=== PATIENT | male | born 1960 | race Caucasian/White ===

== ENCOUNTER 2020-10-16 14:45 | Emergency (ER) | payer OTHER ==
[2020-10-16] MEDS ORDERED: fentaNYL 100 MCG/2 ML SDV IVPUSH ONE ×2 (15:14→15:36)
[2020-10-16] MEDS ORDERED: Ondansetron 4 MG/2 ML SDV IVPUSH ONE (15:14)
--- NOTE | 2020-10-16 15:20 | EDM.PDOC ---
ED HPI GENERAL MEDICAL PROBLEM - General Chief Complaint: Abdominal Pain Stated Complaint: ABD PAIN Time Seen by Provider: 10/16/20 15:13 Source of Information: Reports: Patient, Family, RN Notes Reviewed History Limitations: Reports: No Limitations - History of Present Illness INITIAL COMMENTS - FREE TEXT/NARRATIVE: 60-year-old gentleman presents emergency department with a complaint of abdominal pain, he states the pain started yesterday and has progressively gotten worse he does have a history of some abdominal surgeries which include hernia and an appendicitis. He is not having fevers no shortness of breath no chest pain still passing gas Right Lower Abdominal Pain Score (Numeric/FACES): 10 - Related Data Allergies Allergy/AdvReac Type Severity Reaction Status Date / Time No Known Allergies Allergy Verified 10/16/20 15:14 Home Meds: Home Meds NK [No Known Home Meds] 10/16/20 [History] Past Medical History Gastrointestinal History: Reports: Other (See Below) Other Gastrointestinal History: hERNINA - Infectious Disease History Infectious Disease History: Reports: Chicken Pox - Past Surgical History GI Surgical History: Reports: Appendectomy Social & Family History - Tobacco Use Tobacco Use Status *Q: Never Tobacco User - Caffeine Use Caffeine Use: Reports: Coffee, Soda - Recreational Drug Use Recreational Drug Use: No ED ROS GENERAL - Review of Systems Review Of Systems: See Below Constitutional: Reports: No Symptoms Respiratory: Reports: No Symptoms Cardiovascular: Reports: No Symptoms GI/Abdominal: Reports: Abdominal Pain, Flatus, Nausea. Denies: Vomiting ED EXAM, GI/ABD - Physical Exam Exam: See Below Exam Limited By: No Limitations General Appearance: Alert, WD/WN, Mild Distress Respiratory/Chest: No Respiratory Distress, Lungs Clear, Normal Breath Sounds, No Accessory Muscle Use, Chest Non-Tender Cardiovascular: Regular Rate, Rhythm, No Murmur GI/Abdominal Exam: Normal Bowel Sounds, Soft, No Organomegaly, No Distention, Tender (Tender right lower quadrant) Course - Vital Signs Last Recorded V/S: Last Vital Signs Temp 96.7 F L 10/16/20 15:12 Pulse 66 10/16/20 16:01 Resp 22 H 10/16/20 15:12 BP 124/85 10/16/20 16:01 Pulse Ox 97 10/16/20 15:12 - Orders/Labs/Meds Orders: Active Orders 24 hr Category Date Time Status Peripheral IV Care [RC] . DIRECTED Care 10/16/20 15:17 Active UA W/MICROSCOPIC [URIN] Urgent Lab 10/16/20 15:17 Ordered Lactated Ringers [Ringers, Lactated] 1,000 ml Med 10/16/20 15:30 Active IV ASDIRECTED Sodium Chloride 0.9% [Normal Saline] 100 ml Med 10/16/20 15:45 Active IV ASDIRECTED Sodium Chloride 0.9% [Saline Flush] Med 10/16/20 15:17 Active 10 ml FLUSH ASDIRECTED PRN Peripheral IV Insertion Adult [OM.PC] Urgent Oth 10/16/20 15:17 Ordered Medication Orders Lactated Ringer's (Ringers, Lactated) 1,000 mls @ 999 mls/hr IV ASDIRECTED ARRON Last Admin: 10/16/20 15:23 Dose: 999 mls/hr Documented by: CALVIN Sodium Chloride (Normal Saline) 100 mls @ 3 mls/sec IV ASDIRECTED ARRON Last Admin: 10/16/20 16:00 Dose: 3 mls/sec Documented by: KAYLEE Sodium Chloride (Saline Flush) 10 ml FLUSH ASDIRECTED PRN PRN Reason: Keep Vein Open Last Admin: 10/16/20 16:00 Dose: 10 ml Documented by: Admin: 10/16/20 15:23 Dose: 10 ml Documented by: CALVIN Labs: Laboratory Tests 10/16/20 10/16/20 10/16/20 Range/Units 15:08 15:08 15:08 WBC 7.9 (4.5-11.0) K/uL RBC 5.13 (4.30-5.90) M/uL Hgb 15.9 H (12.0-15.0) g/dL Hct 46.4 (40.0-54.0) % MCV 90 (80-98) fL MCH 31 (27-31) pg MCHC 34 (32-36) % Plt Count 154 (150-400) K/uL Neut % (Auto) 64 (36-66) % Lymph % (Auto) 27 (24-44) % Terrell % (Auto) 8 H (2-6) % Eos % (Auto) 1 L (2-4) % Baso % (Auto) 0 (0-1) % Sodium 137 L (140-148) mmol/L Potassium 3.8 (3.6-5.2) mmol/L Chloride 102 (100-108) mmol/L Carbon Dioxide 25 (21-32) mmol/L Anion Gap 13.8 (5.0-14.0) mmol/L BUN 21 H (7-18) mg/dL Creatinine 1.2 (0.8-1.3) mg/dL Est Cr Clr Drug Dosing 63.33 mL/min Estimated GFR (MDRD) > 60 (>60) Glucose 133 H (74-106) mg/dL Lactic Acid 2.3 H (0.4-2.0) mmol/L Calcium 8.7 (8.5-10.1) mg/dL Total Bilirubin 1.0 (0.2-1.0) mg/dL AST 19 (15-37) U/L ALT 31 (12-78) U/L Alkaline Phosphatase 65 (46-116) U/L Troponin I < 0.017 (0.000-0.056) ng/mL Total Protein 6.9 (6.4-8.2) g/dL Albumin 3.7 (3.4-5.0) g/dL Globulin 3.2 (2.3-3.5) g/dL Albumin/Globulin Ratio 1.2 (1.2-2.2) Lipase 197 (73-393) U/L Meds: Medications Generic Name Dose Route Start Last Admin Trade Name Freq PRN Reason Stop Dose Admin Lactated Ringer's 1,000 mls @ 999 mls/hr 10/16/20 15:30 10/16/20 15:23 Ringers, Lactated IV 999 mls/hr ASDIRECTED ARRON Administration Sodium Chloride 100 mls @ 3 mls/sec 10/16/20 15:45 10/16/20 16:00 Normal Saline IV 3 mls/sec ASDIRECTED ARRON Administration Sodium Chloride 10 ml 10/16/20 15:17 10/16/20 16:00 Saline Flush FLUSH 10 ml ASDIRECTED PRN Administration Keep Vein Open Discontinued Medications Generic Name Dose Route Start Last Admin Trade Name Freq PRN Reason Stop Dose Admin Fentanyl 50 mcg 10/16/20 15:14 10/16/20 15:17 Sublimaze IVPUSH 10/16/20 15:15 50 mcg ONETIME ONE Administration Fentanyl 50 mcg 10/16/20 15:36 10/16/20 15:39 Sublimaze IVPUSH 10/16/20 15:37 50 mcg ONETIME ONE Administration Iopamidol 100 ml 10/16/20 15:40 10/16/20 16:01 Isovue-300 (61%) IV 10/16/20 15:41 95 ml ONETIME ONE Administration Ondansetron HCl 4 mg 10/16/20 15:14 10/16/20 15:19 Zofran IVPUSH 10/16/20 15:15 4 mg ONETIME ONE Administration Sodium Chloride 10 ml 10/16/20 15:40 Saline Flush FLUSH 10/16/20 15:41 ONETIME ONE Departure - Departure Time of Disposition: 16:44 Disposition: Home, Self-Care 01 Condition: Fair Clinical Impression: Nephrolithiasis - Discharge Information Instructions: Kidney Stones, [id number] Referrals: PCP,None [Primary Care Provider] - Forms: ED Department Discharge Additional Instructions: Use ibuprofen for baseline pain control use hydrocodone for breakthrough pain, please followup with your primary care provider in 3-5 days if not better, please call return to the emergency department with worsening of symptoms. Sepsis Event Note (ED) - Evaluation Sepsis Screening Result: Possible Sepsis Risk - Focused Exam Vital Signs: Vital Signs Temp Pulse Resp BP Pulse Ox 10/16/20 16:01 66 124/85 10/16/20 15:12 96.7 F L 66 22 H 120/76 97 10/16/20 15:10 96.7 F L 66 22 H 120/76 97 - My Orders Last 24 Hours: My Active Orders 10/16/20 15:17 Peripheral IV Care [RC] . DIRECTED UA W/MICROSCOPIC [URIN] Urgent Sodium Chloride 0.9% [Saline Flush] 10 ml FLUSH ASDIRECTED PRN Peripheral IV Insertion Adult [OM.PC] Urgent 10/16/20 15:30 Lactated Ringers [Ringers, Lactated] 1,000 ml IV ASDIRECTED 10/16/20 15:45 Sodium Chloride 0.9% [Normal Saline] 100 ml IV ASDIRECTED - Assessment/Plan Last 24 Hours: My Active Orders 10/16/20 15:17 Peripheral IV Care [RC] . DIRECTED UA W/MICROSCOPIC [URIN] Urgent Sodium Chloride 0.9% [Saline Flush] 10 ml FLUSH ASDIRECTED PRN Peripheral IV Insertion Adult [OM.PC] Urgent 10/16/20 15:30 Lactated Ringers [Ringers, Lactated] 1,000 ml IV ASDIRECTED 10/16/20 15:45 Sodium Chloride 0.9% [Normal Saline] 100 ml IV ASDIRECTED Plan: Assessment Acuity = acute Site and laterality = nephrolithiasis right-sided Etiology = unknown Manifestations = none Location of injury = Home Lab values = CBC CMP lactic acid troponin all within normal limits CT scan susy cribes enhancement of the right sided ureter consistent with passing of a stone no stone was identified calcifications were appreciated in the bladder Plan I did review lab work CT scan results with him I did write a prescription for hydrocodone 5/325 1 tab p.o. 3 times daily as needed total #4 in case he gets any residual pain he has been trying to strain his urine capture the stone if possible follow-up primary care 3 to 5 days if not better This note was dictated using [employer] voice recognition software please call with any questions on syntax or grammar.
[2020-10-16] MEDS: Sodium Chloride 0.9% 10 ML Syringe FLUSH PRN ×2 (15:23→16:00)
[2020-10-16] MEDS ORDERED: Lactated Ringers 1,000 ML IV SCH (15:30)
[2020-10-16] MEDS ORDERED: Sodium Chloride 0.9% 10 ML Syringe FLUSH ONE (15:40)
[2020-10-16] MEDS ORDERED: Iopamidol 612 MG/ML 500 ML Multipack Bottle IV ONE (15:40)
[2020-10-16] MEDS ORDERED: Sodium Chloride 0.9% 100 ML IV SCH (15:45)
--- NOTE | 2020-10-16 16:32 | CRLCT ---
INDICATION: Right lower quadrant pain TECHNIQUE: CT abdomen and pelvis acquired with IV contrast. 100 mL of Isovue-300 administered. COMPARISON: None available FINDINGS: Lower chest: Minor subsegmental atelectasis. Borderline cardiomegaly with atrial prominence. Liver: Unremarkable. Spleen: Unremarkable. Pancreas: Pancreatic divisum is not excluded. Gallbladder and bile ducts: Unremarkable. Adrenal glands: Unremarkable. Kidneys: No hydronephrosis. Urothelial enhancement in the right ureter with mild adjacent stranding. GI tract: Small nodular foci of enhancement along the serosal surface of the duodenum and some jejunal segments, nonspecific. A small right inguinal hernia containing a short segment of decompressed small-bowel and small fluid, without associated mechanical obstruction. The appendix is not clearly seen and there are no findings of appendicitis. No significant pericolonic changes. No significant free fluid or free air. Vascular structures: Mild atherosclerotic changes. Lymph nodes: Unremarkable. Pelvic Organs: Upper limits of normal prostatic size. Mildly prominent seminal vesicles, presumably physiologic. A small calcification in the posterior bladder. Focal soft tissue prominence and mild enhancement at the right UVJ, protruding into the bladder lumen. Bones: Osteopenia. Bilateral L5 spondylolysis. Mild focal central compression deformity along the L4 superior endplate. IMPRESSION: Urothelial enhancement in the right ureter with mild adjacent stranding. Focal soft tissue prominence and enhancement at the right UVJ, and a small calculus within the bladder. The findings could represent sequela of a recently passed right ureteral calculus, without hydronephrosis, and/or a UTI. Correlate clinically. Follow-up urological evaluation is recommended to exclude a urothelial lesion at the right UVJ. A bowel containing right inguinal hernia without associated mechanical obstruction. Dictated by Simon Monge MD @ 10/16/2020 4:31:33 PM Please note that all CT scans at this facility use dose modulation, iterative reconstruction, and/or weight-based dosing when appropriate to reduce radiation dose to as low as reasonably achievable. Dictated by: Simon Monge MD @ 10/16/2020 16:31:47 (Electronically Signed)
== END 2020-10-16 16:59 | disposition home or self-care (01) ==
LOC: JP.ED 14:45
DX: N20.0 Calculus of kidney (principal); N21.0 Calculus in bladder; Z90.49 Acquired absence of other specified parts of digestive tract
CPT/HCPCS: 36415; 74177; 80053; 83605; 83690; 84484; 85025; 96374; 96375; 99284; J2405; J3010; J7120; Q9967

== ENCOUNTER 2024-04-07 17:31 | Emergency (ER) | payer OTHER ==
[2024-04-07 17:50] LABS: BASOPHILS ABSOLUTE AUTO 0.04 K/uL (0.00-0.10); BASOPHILS PERCENT AUTO 0.5 % (0.1-1.3); EOSINOPHILS ABSOLUTE AUTO 0.13 K/uL (0.00-0.40); EOSINOPHILS PERCENT AUTO 1.7 % (0.0-5.4); HEMOGLOBIN 11.6 g/dL (12.9-16.9); IMMATURE GRAN ABSOLUTE AUTO 0.03 K/uL (0.00-0.23); IMMATURE GRAN PERCENT AUTO 0.4 % (0.0-0.7); LYMPHOCYTES ABSOLUTE AUTO 1.69 K/uL (0.8-3.3); LYMPHOCYTES PERCENT AUTO 22.7 % (11.4-47.7); MEAN CORPUSCULAR HGB CONC 34.1 g/dL (31.6-35.5); MEAN CORPUSCULAR VOLUME 93.9 fL (81.4-99.0); MONOCYTES ABSOLUTE AUTO 0.63 K/uL (0.20-0.90); MONOCYTES PERCENT AUTO 8.5 % (3.3-12.6); NEUTROPHILS ABSOLUTE AUTO 4.93 K/uL (1.0-7.6); NEUTROPHILS PERCENT AUTO 66.2 % (40.0-78.1); PLATELET COUNT,PLT 295 K/uL (130-375); RED BLOOD CELL COUNT 3.62 M/uL (4.14-5.76); WHITE BLOOD CELL COUNT,WBC 7.5 K/uL (3.2-11.0)
[2024-04-07] MEDS: Sodium Chloride 0.9% 100 ML IV ONE (18:01)
[2024-04-07] MEDS: Iopamidol 755 Mg/ML 100 ML Bottle IV ONE (18:01)
[2024-04-07] MEDS: Sodium Chloride 0.9% 10 ML Syringe FLUSH ONE (18:01)
[2024-04-07 18:07] LABS: INR 1.2; PROTHROMBIN TIME 12.2 sec (9.2-10.6); PTT,PARTIAL THROMBOPLSTIN TIME 25.4 sec (21.8-27.3)
[2024-04-07 18:11] LABS: ANION GAP 4.8 mmol/L (5.0-14.0); BLOOD UREA NITROGEN,BUN 11 mg/dL (7-18); CALCIUM 8.9 mg/dL (8.5-10.1); CARBON DIOXIDE,CO2 30 mmol/L (21-32); CHLORIDE,CL 105 mmol/L (100-108); CREATININE 0.7 mg/dL (0.8-1.3); ESTIMATED GFR 104 mL/min (>60); GLUCOSE RANDOM 111 mg/dL (74-106); POTASSIUM,K 4.5 mmol/L (3.6-5.2); SODIUM,NA 140 mmol/L (140-148)
[2024-04-07 18:14] LABS: TROPONIN I HIGH SENSITIVITY 190.2 pg/mL (<=60.3)
[2024-04-07] MEDS ORDERED: Sodium Chloride 0.9% 1,000 ML IV ONE (18:29)
== END 2024-04-07 18:52 ==
LOC: JP.ED 17:31
DX: I45.81 Long QT syndrome (principal); R41.0 Disorientation, unspecified; H54.7 Unspecified visual loss; Z86.16 Personal history of COVID-19; Z90.49 Acquired absence of other specified parts of digestive tract
CPT/HCPCS: 36415; 70450; 70496; 70498; 80048; 84484; 85025; 85610; 85730; 93005; 99285; J3490; Q9967; 93010